=== PATIENT | male | born 1965 | race Caucasian/White ===

== ENCOUNTER 2017-03-13 10:20 | Emergency (ER) | payer BC ==
[~2017-03-13] VITALS: Ht 177.8 cm; Wt 150.0 kg
[~2017-03-13 10:20] MED LIST: ATENOLOL25 MG PO; EXFORGE HCT 101 EAC2 PO; FLONASE16 G1 BOTH NARES; GLUCOPHAGE500 MG PO; GLUCOSAMINE-CH1 EA14 PO; LO-DOSE ASPIRIN81 M1 PO; MELOXICAM15 MG PO; METFORMIN HCL850 MG PO; NUVIGIL250 MG PO; PRAVASTATIN SOD20 MG PO; ZYRTEC5 MG PO
[2017-03-13 12:12] LABS: EOSINOPHIL (%) 0.5 % (0-5); EOSINOPHIL COUNT 0.1 K/uL (0-0.3); HEMATOCRIT 38.5 % (38.0-50.0); IMMATURE GRANULOCYTE (%) 0.3 % (0.0-0.7); INSTRUMENT ABS NEUTROPHIL CT 7.1 K/uL; LYMPHOCYTE COUNT 1.7 K/uL (1.0-2.8); MCH 31.7 PG (29.0-34.0); MCHC 35.3 G/DL (30.0-36.0); MCV 89.7 FL (86-99); MEAN PLAT.VOLUME 10.4 uM^3 (9.0-12.4); MONOCYTE (%) 5.1 % (3-12); MONOCYTE COUNT 0.5 K/uL (0-0.8); NEUTROPHIL (%) 76.3 % (45-76); NEUTROPHIL COUNT 7.1 K/uL (1.8-6.4); PLATELET COUNT 162 K/uL (156-360); RBC DIS.WIDTH-CV 11.9 % (11.8-14.6); RBC DIS.WIDTH-SD 38.4 % (39-53); RED BLOOD COUNT 4.29 M/uL (4.00-5.50); WHITE BLOOD COUNT 9.4 K/uL (4.1-10.2)
[2017-03-13 12:22] LABS: CHLORIDE 108 mEq/L (99-109); POTASSIUM 3.9 mEq/L (3.7-5.4); SODIUM 141 mEq/L (136-147)
[2017-03-13 12:24] LABS: GLUCOSE 164 mg/dL (70-99)
[2017-03-13 12:25] LABS: ANION GAP 10 MEQ/L (2-14)
[2017-03-13 12:28] LABS: GFR ESTIMATE (CALCULATED) > 59 mL/min/; UREA NITROGEN (BUN) 18 mg/dL (9-23)
[2017-03-13 12:39] LABS: ADD MIUA? YES; BILIRUBIN NEGATIVE; BLOOD SMALL; COLOR STRAW ((YELLOW)); GLUCOSE (STRIP) 50; KETONES NEGATIVE; LEUKOCYTES NEGATIVE; NITRITE NEGATIVE; PROTEIN (STRIP) NEGATIVE; SPECIFIC GRAVITY 1.014 (1.000-1.030); UROBILINOGEN 0.2 MG/DL (0.2-1.0)
[2017-03-13 12:41] LABS: BACTERIA NONE SEEN /HPF; EPITHELIAL CELLS NONE SEEN /HPF; MUCUS TRACE /LPF; RED BLOOD CELLS 0-5 /HPF (0-5); WHITE BLOOD CELLS 0-5 /HPF (0-5)
[2017-03-13] MEDS ORDERED: NORCO 5/3251 TABLET PO (13:08)
[2017-03-13] MEDS ORDERED: FLOMAX0.4 MG PO (13:08)
[2017-03-13 13:22] VITALS: BP 165/93
== END 2017-03-13 13:23 | disposition home or self-care (01) ==
LOC: EME 10:20
PROVIDERS: Emergency Medicine
DX: N20.1 Calculus of ureter (principal); I10 Essential (primary) hypertension; E11.9 Type 2 diabetes mellitus without complications; Z79.84 Long term (current) use of oral hypoglycemic drugs
CPT/HCPCS: 74176; 80048; 81003; 85025; 99281; 99285; J1885; J7040